=== PATIENT | female | born 1970 | race Caucasian/White ===

== ENCOUNTER → 2016-05-01 | Outpatient (CLI) | payer BC ==
[~2016-05-01] MED LIST: GADOBUTROL 10 ML VIAL IVP ONE
--- NOTE | 2016-05-01 11:45 | MR ---
Unenhanced and Enhanced MR Imaging of the Brain Clinical History: 46-year-old female with a history of multiple sclerosis and vertigo, and some leg s pasms. Evaluate the status of demyelination. ICD 10 Diagnostic Code: G35. Technique: Sagittal and axial T1-weighted, axial T2, FLAIR, SWI, and DWI sequences were obtained with ADC map. The patient received 6.5 mL of IV Gadavist, and sagittal T2 CUBE and multiplanar contrast-e nhanced T1-weighted sequences of the brain were acquired. This exam was performed in conjunction with MR imaging of the cervical spine, which will be separately dictated. Comparison Study: MR imaging of the brain, dated February 07, 2015. Findings: There is a stable periventricular white matter lesion seen once again in the posteromedial aspect of the right frontal lobe on FLAIR series 6, images 21-22, and also a stable demyelinating les ion in the posterior aspect of the left frontal subcortex on series 6 image 21. There is also a stabl e subcortical white matter lesion in the left temporal lobe on series 6, image 14. There are some tin y right frontal more punctate white matter intensities which are pericallosal and periventricular, an d are unchanged. A tiny rounded lesion in the deep white matter of the superoposterior left frontal l obe on series 6, image 23 is unchanged. The brainstem and cerebellum appear normal. There is no unusu al parenchymal or leptomeningeal enhancement. There is no restricted diffusion to suggest an acute or subacute infarction. The SWI sequences do not reveal any blooming artifact to suggest occult hemorrh agic products or amyloid angiopathy. The ventricles and basilar cisterns are normal in size and symme trical in configuration. The craniocervical junction, sella turcica, pineal gland, and the orbits freedom ear normal. The paranasal sinuses and mastoids are aerated. The vestibulocochlear apparatus on each s puma is normal. There are appropriate vertebrobasilar, carotid artery, and dural venous sinus flow-voi ds. Impression: The distribution of demyelinating disease is unchanged from 2015, and there is no abnorma l enhancement to suggest acute demyelination.
--- NOTE | 2016-05-01 13:11 | MR ---
Unenhanced and Enhanced MR Imaging of the Cervical Spine Clinical History: 46-year-old female with multiple sclerosis and a history of leg spasm. Compare with prior imaging to assess for interval change. ICD 10 Diagnostic Code: G35. Technique: Sagittal T1 FLAIR, FSE T2, T2 STIR, and fat-saturated T1-weighted FLAIR sequences of the c ervical spine were obtained and supplemented by stacked axial contrast-enhanced T1, and axial T2 CUBE sequences of the cervical spine. The patient received 6.5 mL of IV Gadavist without complication. Th is exam was also performed in conjunction with MR imaging of the brain, reported separately. Comparison Studies: MR imaging of the cervical spine, dated February 07, 2015, February 27, 2014, and February 23, 2012. Findings: There is magnetic susceptibility artifact at the C5-C6 and C6-C7 levels consistent with yosvany or instrumentation, limiting evaluation at these levels. On the FSE T2 and STIR sequences, there is p ersistent abnormal signal involving the intramedullary aspect of the cord, seen at the [id number] C 5 level. This is seen to the left of midline, and there is mild stable cord atrophy. There is no new cord enhancement. The visualized infratentorial structures, craniocervical junction, upper cervical c ord, and upper thoracic cord appear normal. The visualized prevertebral soft tissues are normal with the caveat that the saturation band limits diagnostic assessment. There is magnetic susceptibility ar tifact associated with some dental crowns. Bone marrow signal is notable for a stable focus of T1 and T2 hypointense signal with contrast enhancement after gadolinium and hyperintense T2 STIR signal inv olving the [id number] odontoid. This has been present on multiple preceding studies, is reassuringl y stable, and may represent an atypical hemangioma. The predental space is normal. The C1-C2 level does not reveal any central canal stenosis. At the C2-C3 level, there is mild degenerative disk desiccation. There is mild bilateral facet hypert rophy, but no central canal or neural foraminal stenosis. At the C3-C4 level, there is mild degenerative disk desiccation. There is a tiny right-sided uncovert ebral osteophyte without significant neural foraminal narrowing. The central canal is patent. At the C4-C5 level, there is mild degenerative disk desiccation with mild bilateral facet hypertrophy . There is no central canal or neural foraminal stenosis. There has been interim diskectomy and anterior cervical fusion at C5-C6 and C6-C7 with the orthopedic hardware somewhat limiting anatomic assessment. There has been improvement in the degree of previous ly noted central canal stenosis. The neural foramina are relatively patent. At the C7-T1 level, there is no central canal or neural foraminal stenosis. The visualized upper thoracic spine is normal, with a relatively capacious thecal sac. Impression: 1. Interim ACDF C5-C6 and C6-C7 since January 2015, with improvement in previously noted stenoses. 2. Stable appearance of the plaque at the left C5 level, with no intervening development of demyelina tion. 3. 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
== END ==
LOC: FIMAGING 09:20
PROVIDERS: ATTEND Psychiatry & Neurology Neurology
DX: G35 Multiple sclerosis (principal); M62.838 Other muscle spasm
CPT/HCPCS: A9585

== ENCOUNTER → 2016-11-17 | Outpatient (CLI) | payer BC | LOC: FIMAGING 18:54 | PROVIDERS: ATTEND Psychiatry & Neurology Neurology | DX: G35 Multiple sclerosis (principal); M51.36 Other intervertebral disc degeneration, lumbar region; D18.09 Hemangioma of other sites | CPT/HCPCS: A9585 ==

== ENCOUNTER → 2016-11-18 | Outpatient (CLI) | payer BC | LOC: FIMAGING 07:45 | PROVIDERS: ATTEND Psychiatry & Neurology Neurology | DX: G35 Multiple sclerosis (principal); D18.09 Hemangioma of other sites | CPT/HCPCS: A9585 ==